=== PATIENT | female | born 1980 | race African-American/Black ===

== ENCOUNTER 2019-05-05 16:07 | Emergency (ER) | payer OTHER ==
[~2019-05-05] VITALS: Ht 165.1 cm; Wt 78.9 kg
[2019-05-05 16:10] VITALS: BP 124/79; Ht 165.1 cm; Wt 78.9 kg
[2019-05-05 17:48] LABS: BASOPHIL % 0.5 % (0-2); PLATELET COUNT 212 x10^3mcL (130-400); RED CELL DISTRIBUTION WIDTH 13.8 % (11.5-14.5)
[2019-05-05 17:54] LABS: CALCIUM 8.2 mg/dL (8.5-10.1); CARBON DIOXIDE 28.3 mmol/L (21-32); CHLORIDE SERUM 108 mmol/L (98-107); CREATININE SERUM 0.9 mg/dL (0.6-1.0); GFR1 > 60 mL/min; GLUCOSE SERUM 85 mg/dL (74-106); POTASSIUM SERUM 4.1 mmol/L (3.5-5.1); SODIUM SERUM 144 mmol/L (136-145)
[2019-05-05 17:59] LABS: ALKALINE PHOSPHATASE 91 U/L (46-116); ALT/SGPT 13 U/L (14-59); AST/SGOT 8 U/L (15-37); TOTAL PROTEIN, SERUM 6.9 g/dL (6.4-8.2)
[2019-05-05 18:04] LABS: ALBUMIN 3.3 g/dL (3.4-5.0)
== END 2019-05-05 18:55 | disposition left against medical advice (07) ==
LOC: ED 16:07
PROVIDERS: Emergency Medicine
DX: Z53.21 Procedure and treatment not carried out due to patient leaving prior to being seen by health care provider (principal)

== ENCOUNTER 2019-05-06 08:54 | Emergency (ER) | payer OTHER | END 2019-05-06 09:31 | disposition left against medical advice (07) | LOC: ED 08:54 | DX: Z53.21 Procedure and treatment not carried out due to patient leaving prior to being seen by health care provider (principal) ==

== ENCOUNTER 2019-05-18 17:43 | Emergency (ER) | payer OTHER ==
[~2019-05-18] VITALS: Ht 165.1 cm; Wt 77.6 kg
[2019-05-18 18:09] VITALS: Ht 165.1 cm; Wt 77.6 kg
[2019-05-18 18:55] LABS: BASOPHIL % 0.3 % (0-2); PLATELET COUNT 276 x10^3mcL (130-400); RED CELL DISTRIBUTION WIDTH 13.5 % (11.5-14.5)
[2019-05-18 19:05] LABS: CALCIUM 8.2 mg/dL (8.5-10.1); CARBON DIOXIDE 25.5 mmol/L (21-32); CHLORIDE SERUM 108 mmol/L (98-107); CREATININE SERUM 0.8 mg/dL (0.6-1.0); GFR1 > 60 mL/min; GLUCOSE SERUM 97 mg/dL (74-106); POTASSIUM SERUM 3.4 mmol/L (3.5-5.1); SODIUM SERUM 143 mmol/L (136-145)
[2019-05-18 19:09] LABS: ALKALINE PHOSPHATASE 80 U/L (46-116); ALT/SGPT 11 U/L (14-59); AST/SGOT 8 U/L (15-37); BILIRUBIN DIRECT 0.08 mg/dL (0.0-0.2); BILIRUBIN TOTAL 0.3 mg/dL (0.20-1.00); LIPASE 150 IU/L (73-393); TOTAL PROTEIN, SERUM 6.5 g/dL (6.4-8.2)
[2019-05-18 19:10] LABS: ALBUMIN 3.2 g/dL (3.4-5.0)
[2019-05-18 20:18] VITALS: BP 105/62
== END 2019-05-18 20:18 | disposition left against medical advice (07) ==
LOC: ED 17:43
PROVIDERS: Student in an Organized Health Care Education/Training Program
DX: K52.9 Noninfective gastroenteritis and colitis, unspecified (principal); K56.699 Other intestinal obstruction unspecified as to partial versus complete obstruction; Z88.8 Allergy status to other drugs, medicaments and biological substances; Z90.49 Acquired absence of other specified parts of digestive tract; Z90.710 Acquired absence of both cervix and uterus; Z98.890 Other specified postprocedural states
CPT/HCPCS: J0696; J2270; J2405; J7030; J7060

== ENCOUNTER 2019-05-23 21:25 | Emergency (ER) | payer OTHER ==
[~2019-05-23] VITALS: Ht 165.1 cm; Wt 80.7 kg
[2019-05-23 21:30] VITALS: Ht 165.1 cm; Wt 80.7 kg
[2019-05-23 22:18] LABS: BASOPHIL % 0.5 % (0-2); PLATELET COUNT 248 x10^3mcL (130-400); RED CELL DISTRIBUTION WIDTH 14.2 % (11.5-14.5)
[2019-05-23 22:28] LABS: CALCIUM 7.6 mg/dL (8.5-10.1); CARBON DIOXIDE 25.8 mmol/L (21-32); CHLORIDE SERUM 110 mmol/L (98-107); CREATININE SERUM 0.7 mg/dL (0.6-1.0); GFR1 > 60 mL/min; GLUCOSE SERUM 105 mg/dL (74-106); POTASSIUM SERUM 3.3 mmol/L (3.5-5.1); SODIUM SERUM 144 mmol/L (136-145)
[2019-05-23 22:33] LABS: ALKALINE PHOSPHATASE 69 U/L (46-116); ALT/SGPT 10 U/L (14-59); AMYLASE 49 U/L (25-115); AST/SGOT 11 U/L (15-37); BILIRUBIN TOTAL 0.35 mg/dL (0.20-1.00); LIPASE 97 IU/L (73-393)
[2019-05-23 22:35] LABS: ALBUMIN 2.8 g/dL (3.4-5.0); TOTAL PROTEIN, SERUM 5.8 g/dL (6.4-8.2)
[2019-05-24 04:19] VITALS: BP 126/86
== END 2019-05-24 06:13 | disposition home or self-care (01) ==
LOC: ED 21:25
PROVIDERS: Specialist
DX: N83.202 Unspecified ovarian cyst, left side (principal); R11.10 Vomiting, unspecified; Z90.49 Acquired absence of other specified parts of digestive tract; Z90.11 Acquired absence of right breast and nipple; Z98.890 Other specified postprocedural states; Z88.8 Allergy status to other drugs, medicaments and biological substances
CPT/HCPCS: J1885; J2270; J2405; J3010; J7030

== ENCOUNTER 2019-05-24 11:18 | Emergency (ER) | payer OTHER ==
[~2019-05-24] VITALS: Ht 165.1 cm; Wt 79.4 kg
[2019-05-24 11:25] VITALS: Ht 165.1 cm; Wt 79.4 kg
[2019-05-24 12:29] VITALS: BP 130/77
== END 2019-05-24 12:59 | disposition home or self-care (01) ==
LOC: ED 11:18
DX: N83.202 Unspecified ovarian cyst, left side (principal)
CPT/HCPCS: J2270; Q0162

== ENCOUNTER 2019-06-16 21:00 | Emergency (ER) | payer OTHER ==
[~2019-06-16] VITALS: Ht 165.1 cm; Wt 72.6 kg
[2019-06-16 21:08] VITALS: Ht 165.1 cm; Wt 72.6 kg
[2019-06-16 21:56] LABS: BASOPHIL % 0.3 % (0-2); PLATELET COUNT 249 x10^3mcL (130-400); RED CELL DISTRIBUTION WIDTH 14.4 % (11.5-14.5)
[2019-06-16 22:07] LABS: CALCIUM 8.9 mg/dL (8.5-10.1); CARBON DIOXIDE 24.4 mmol/L (21-32); CHLORIDE SERUM 106 mmol/L (98-107); CREATININE SERUM 0.7 mg/dL (0.6-1.0); GFR1 > 60 mL/min; GLUCOSE SERUM 99 mg/dL (74-106); POTASSIUM SERUM 3.5 mmol/L (3.5-5.1); SODIUM SERUM 141 mmol/L (136-145)
[2019-06-16 22:12] LABS: ALBUMIN 3.6 g/dL (3.4-5.0); ALKALINE PHOSPHATASE 90 U/L (46-116); ALT/SGPT 13 U/L (14-59); AST/SGOT 13 U/L (15-37); BILIRUBIN TOTAL 0.3 mg/dL (0.20-1.00); TOTAL PROTEIN, SERUM 7.3 g/dL (6.4-8.2)
[2019-06-17 00:48] VITALS: BP 112/79
== END 2019-06-17 00:48 | disposition home or self-care (01) ==
LOC: ED 21:00
PROVIDERS: Emergency Medicine
DX: N83.202 Unspecified ovarian cyst, left side (principal); Z88.8 Allergy status to other drugs, medicaments and biological substances; Z90.710 Acquired absence of both cervix and uterus; Z90.721 Acquired absence of ovaries, unilateral
CPT/HCPCS: 36415; J3010; Q0162

== ENCOUNTER 2019-07-03 17:08 | Emergency (ER) | payer OTHER ==
[~2019-07-03] VITALS: Ht 165.1 cm; Wt 74.4 kg
[2019-07-03 17:17] VITALS: Ht 165.1 cm; Wt 74.4 kg
[2019-07-03 18:13] LABS: BASOPHIL % 0.9 % (0-2); PLATELET COUNT 251 x10^3mcL (130-400); RED CELL DISTRIBUTION WIDTH 13.1 % (11.5-14.5)
[2019-07-03 18:21] LABS: CALCIUM 8.5 mg/dL (8.5-10.1); CARBON DIOXIDE 27.5 mmol/L (21-32); CHLORIDE SERUM 103 mmol/L (98-107); CREATININE SERUM 0.7 mg/dL (0.6-1.0); GFR1 > 60 mL/min; GLUCOSE SERUM 92 mg/dL (74-106); POTASSIUM SERUM 3.8 mmol/L (3.5-5.1); SODIUM SERUM 138 mmol/L (136-145)
[2019-07-03 18:26] LABS: ALBUMIN 3.5 g/dL (3.4-5.0); ALKALINE PHOSPHATASE 79 U/L (46-116); ALT/SGPT 37 U/L (14-59); AST/SGOT 31 U/L (15-37); BILIRUBIN TOTAL 0.4 mg/dL (0.20-1.00); LIPASE 63 IU/L (73-393)
[2019-07-04 02:30] VITALS: BP 137/84
== END 2019-07-04 02:42 | disposition home or self-care (01) ==
LOC: ED 17:08
PROVIDERS: Emergency Medicine
DX: L30.4 Erythema intertrigo (principal); J10.1 Influenza due to other identified influenza virus with other respiratory manifestations; Z88.8 Allergy status to other drugs, medicaments and biological substances; Z91.041 Radiographic dye allergy status; Z90.710 Acquired absence of both cervix and uterus
CPT/HCPCS: J2270; J2405; J2920; J3010; Q9967

== ENCOUNTER 2019-07-04 15:32 | Observation (INO) | payer OTHER ==
[~2019-07-04] VITALS: Ht 165.1 cm; Wt 77.1 kg
[2019-07-04 15:40] VITALS: Ht 165.1 cm; Wt 77.1 kg
--- NOTE | 2019-07-04 16:12 | NUR ---
PT PRESENTS TO ED WITH C/O ABDOMINAL PAIN. PT REPORTS BEING SEEN HERE YESTERDAY FOR SAME PAIN. PT STS "STUDIES WERE INCONCLUSIVE" AND SHE WAS SENT HOME. PT STS PAIN SUBSIDED BRIEFLY BUT RETURNED TODAY. PT STS PAIN IS IN LOWER MID QUADRANT OF ABDOMEN AND RADIATES TO BACK. PT REPORTS N/V WITH PAIN. PT ALSO REPORTS BEING UNABLE TO URINATE SINCE YESTERDAY. PT STS SHE FEELS THE URGE TO GO BUT NOTHING COMES OUT. PT ALSO REPORTS HAVING FEVER TODAY. PT AAOX4, RESP E/U, LAYING ON LEFT SIDE HOLDING STOMACH. PT CALL LIGHT WITHIN REACH, WILL CONTINUE TO MONITOR.
[2019-07-04 17:14] LABS: CALCIUM 8.6 mg/dL (8.5-10.1); CARBON DIOXIDE 27.9 mmol/L (21-32); CHLORIDE SERUM 106 mmol/L (98-107); CREATININE SERUM 0.7 mg/dL (0.6-1.0); GFR1 > 60 mL/min; GLUCOSE SERUM 83 mg/dL (74-106); POTASSIUM SERUM 3.8 mmol/L (3.5-5.1); SODIUM SERUM 141 mmol/L (136-145)
[2019-07-04 17:18] LABS: ALKALINE PHOSPHATASE 80 U/L (46-116); ALT/SGPT 28 U/L (14-59); AST/SGOT 14 U/L (15-37); LIPASE 80 IU/L (73-393); TOTAL PROTEIN, SERUM 6.8 g/dL (6.4-8.2)
[2019-07-04 17:19] LABS: ALBUMIN 3.3 g/dL (3.4-5.0)
[2019-07-04 17:20] LABS: BASOPHIL % 1.4 % (0-2); PLATELET COUNT 274 x10^3mcL (130-400); RED CELL DISTRIBUTION WIDTH 13.3 % (11.5-14.5)
--- NOTE | 2019-07-04 17:26 | NUR ---
PT TOLD WE NEED A URINE SAMPLE. PT STS SHE CAN'T GO CURRENTLY. AWARE.
--- NOTE | 2019-07-04 17:42 | NUR ---
PT REPORTS NO DIFFERENCE IN PAIN, STILL 06/11. NOTIFIED.
--- NOTE | 2019-07-04 19:12 | NUR ---
REPORT GIVEN TO ANISH MICHAUD TO ASSUME CARE OF PT.
--- NOTE | 2019-07-04 19:30 | NUR ---
DANIEL ROMANO FOR PELVIC EXAM AND SPECIMEN COLLECTION. SPECIMENS SENT TO LAB.
--- NOTE | 2019-07-04 20:37 | NUR ---
PT REPORT CALLED TO ELSA OCONNELL TO ASSUME PT CARE.
--- NOTE | 2019-07-04 20:40 | NUR ---
PT TRANSFERRED TO 219A BY WHEELCHAIR BY OLIVERIO MUNOSN. PT ACCEPTED BY ELSA OCONNELL TO ASSUME PT CARE. PT AOX4, RESP EVEN AND UNLABORED, NO ACUTE DISTRESS NOTED. PT AMBULATED FROM WHEELCHAIR TO BED WITHOUT INCIDENT.
[2019-07-04 20:54] VITALS: BP 123/92
--- NOTE | 2019-07-04 20:56 | NUR ---
RECEIVED PT FROM ED VIA [facility]ALT. ORIENTED PT TO ROOM AND SURROUNDINGS. IV NOTED TO RIGHT BICEP PATENT AND INTACT. INSTRUCTED PT ON THE USE OF CALL LIGHT FOR ASSISTANCE. ENDORSED PT TO PRIMARY NURSE ELSA
--- NOTE | 2019-07-04 21:00 | NUR ---
PT RECEIVED FROM RESOURCE NURSE. PT A/O X4, ABLE TO MAKE NEEDS KNOWN. MED-SURG, DENIES ANY CP/PRESSURE. PULSES PALPABLE, NO EDEMA PRESENT. BREATHING IS EVEN AND UNLABORED ON RA, DENIES SOB, NO RESP DISTRESS NOTED. ABD SOFT AND ROUND, DENIES ANY N/V. VOIDS FREELY, BRP. AMBULATORY WITH STEADY GAIT. SKIN IS WARM AND DRY, INTACT. PT C/O SEVERE ABD PAIN, WILL MEDICATE WITH PRN PAIN MED PER EMAR. SL TO RT BICEP, PATENT AND INTACT, SITE WNL. ORIENTED PT ROOM AND CALL LIGHT. NO ACUTE DISTRESS NOTED. BED IN LOWEST SETTING, SIDE RAILS UP X2, CALL LIGHT WITHIN REACH. WILL CONT TO MONITOR.
--- NOTE | 2019-07-04 21:07 | NUR ---
PT C/O 10/10 ABD PAIN, PRN MORPHINE IVP GIVEN ORDERED. NO ACUTE DISTRESS OBSERVED.
--- NOTE | 2019-07-04 23:05 | NUR ---
SPOKE WITH DR ATKINS REGARDING PT'S CT ABD+PELVIS WITH IV+PO CONTRAST. DR ATKINS AWARE OF PT'S PREVIOUS CT RESULTS. PER DR ATKINS, "OKAY TO CONT WITH CT, DR FORREST WOULD LIKE TO TO R/O INTRA-ABD PATHOLOGY AND TRENDING WBC." WILL NOTIFY AQUATIC LABORER.
--- NOTE | 2019-07-04 23:45 | NUR ---
PER PT, "WHEN I TAKE NORCO, I BREAK OUT IN HIVES, THATS WHY MY PRIMARY SWITCHED MY PAIN MED TO OXYCODONE." DR ATKINS MADE AWARE, ORDERS RECEIVED.
[2019-07-05 06:29] LABS: CALCIUM 7.8 mg/dL (8.5-10.1); CARBON DIOXIDE 26.9 mmol/L (21-32); CHLORIDE SERUM 108 mmol/L (98-107); CREATININE SERUM 0.7 mg/dL (0.6-1.0); GFR1 > 60 mL/min; GLUCOSE SERUM 96 mg/dL (74-106); MAGNESIUM 1.9 mg/dL (1.8-2.4); SODIUM SERUM 141 mmol/L (136-145)
[2019-07-05 07:04] LABS: BASOPHIL % 0.9 % (0-2); PLATELET COUNT 222 x10^3mcL (130-400); RED CELL DISTRIBUTION WIDTH 13.2 % (11.5-14.5)
--- NOTE | 2019-07-05 07:47 | NUR ---
PT SLEPT AT INTERVALS THROUGHOUT THE EVENING. BREATHING IS EVEN AND UNLABORED, NO RESP DISTRESS NOTED. PT HAD INTERMITTEND EPSODES OF SEVERE ABD PAIN, PRN MORPHINE IVP AND OXYCODONE GIVEN PER EMAR. PT NPO AT THIS TIME FOR CT ABD+PELVES. NO ACUTE CHANGES ENCOUNTERED DURING SHIFT. ALL NEEDS MET AND ANTICIPATED. IV INTACT. CALL LIGHT WITHIN REACH. CONT OF CARE ENDORSED TO AM NURSE.
--- NOTE | 2019-07-05 07:50 | NUR ---
RECEIVED HAND OFF REPORT FROM NIGHT NURSE. PATIENT NPO AT THIS TIME DUE TO PENDING CT ABD WITH CONTRAST. HIS WILL BE THE 3RD CT ABD IN 2 DAYS. PATIENT HAD IV CONTRAST ON THE PREVIOUS SCAN AND NOW WILL BE GETTING PO AND IV CONTRAST. PATIENT HAS A STATED ALLERGY TO IODINE WITH AN EPISODE OF DIFFICULTY BREATHING WITH LAST IV CONTRAST. DR ATKINS AWARE STATING THAT DR FORREST WANTS THE CONTRAST STUDY. RADIOLOGY TECHS AT BEDSIDE ASKING QUESTIONS ABOUT PROCEDURE OF PREVIOUS STUDY
--- NOTE | 2019-07-05 08:06 | NUR ---
REJI FROM CT CALLED AND STATED SHE SPOKE WITH RADIOLOGIST WHO RECOMMENDED A 13 HR PREP WITH PREDNISONE, UNLESS SCAN IS EMERGENT. WILL INFORM DR ATKINS AND INFORM HIM WITH RECOMMENDATIONS
--- NOTE | 2019-07-05 08:21 | NUR ---
DR WOODSON AT STATION AT THIS TIME. WILL UPDATE ON STATUS OF CT SCAN
[2019-07-05 08:52] VITALS: BP 106/73
--- NOTE | 2019-07-05 09:05 | NUR ---
DR WOODSON ROUNDED ON PATIENT. DOES NOT SEE NEED TO HAVE 3RD CT SCAN AFTER 2 PREVIOUS NEGATIVE STUDIES. ORDER RECEIVED TO CANCEL CT SCAN, CALLED MICHAEL IN CT AND INFOMRED. PATIENT ENCOURAGED BY DR WOODSON TO FOLLOW UP WITH OUTPATIENT OBGYN, NEW ORDERS FOR DIFLUCAN FOR POSSIBLE YEAST INFECTION
--- NOTE | 2019-07-05 11:52 | NUR ---
PATIENT COMPLAINING OF SEVERE VAGINAL PAIN AND BURNING WHEN URINATING. MEDICATED PER MAR. NEW CLINICAL RESULTS FROM [facility] SHOW NO INDICATION OF YEAST INFECTION, BUT BACTERIA LEADING TO BACTERIAL VAGINOSIS. WILL PAGE DR WOODSON AND INFORM/
--- NOTE | 2019-07-05 12:36 | NUR ---
SPOKE WITH DR WOODSON AND INFORMED OF NEW CLINICAL INFORMATION OF [facility], RECEIVED ORDERS TO DC DIFLUCAN AND START ON ROCEPHIN 1GM IV DAILY.
--- NOTE | 2019-07-05 14:30 | NUR ---
PATIENT PAIN IS REMAINING AT 9/10, CRAMPING IN VAGINA, MEDICATED PER MAR. AWAITING DR FORREST CONSULT. ASSISTED PATIENT TO PSOTIION OF COMFORT, NO FURTHER VAGINAL BLEEDING AT THIS TIME. WILL CONTINUE TO MONITOR
[2019-07-05 16:40] VITALS: BP 98/66
--- NOTE | 2019-07-05 18:37 | NUR ---
PATIENT COMPLAINING OF 10/10 PAIN TO LOWER ABDOMEN. MEDICATED PER OCT. PAGED [employer]OLOG[employer] PROFESSOR [facility] DOCTOR TO INFORM. SCANT SPOTTING SEEN ON PAD FROM PATIENT VAGINA. REPORTED SEEING BLOOD WHEN WIPING
--- NOTE | 2019-07-05 18:53 | NUR ---
SPOKE WITH DR ROSS, INFOMRED OF PATIENT CONDITION AND CONTINUED PAIN. RECEIVED ORDER TO INCREASE MORPHINE TO 3MG IV Q3HR WILL ENDORSE TO NIGHT NURSE
--- NOTE | 2019-07-05 19:40 | NUR ---
RECEIVED PT FROM AM NURSE BENNY. PT LAYING DOWN IN BED. C/O ABD PAIN WITH NO ALLEVIATING FACTORS. WILL MEDICATE ACCORDINGLY. MED-STEVE. DENIES CP/PRESSURE AT THIS TIME. PALPABLE PULSES TO ALL EXTREMETIES. NO EDEMA NOTED. LUNG SOUNDS CTA. BREATHING EVEN AND UNLABORED ON RA. NO ACUTE DISTRESS NOTED. ABD SOFT AND NONDISTENDED. ACTIVE BS X4 QUAD. PT C/O VAGINAL SPOTTING. VOIDS FREELY BRP. IV TO LFA FLUSHING WELL. SITE WNL. BED AT LOWEST SETTING. SIDE RAILS X2 UP. CALL LIGHT WITHING REACH. WILL CONT TO MONITOR.
[2019-07-05 20:25] VITALS: BP 103/70
--- NOTE | 2019-07-05 20:25 | NUR ---
PT C/O 06/11 ABD PAIN WITH NO ALLEVIATING FACTORS. MEDICATED WITH PRN MORPHINE PER OCT. NO ACUTE DISTRESS NOTED. WILL CONT TO MONITOR.
--- NOTE | 2019-07-05 22:00 | NUR ---
PT C/O ANXIETY, CALLED DR ARANA. RECEIVED ORDER FOR ATIVAN. ATIVAN GIVEN PER OCT. NO ACUTE DISTRESS NOTED. WILL CONT TO MONITOR.
--- NOTE | 2019-07-05 23:48 | NUR ---
PT C/O 06/11 ABD PAIN. MEDICATED WITH PRN MORPHINE PER OCT. VS 108/76, 80, RESP 18. NO ACUTE DISTRESS NOTED. WILL CONT TO MONITOR.
--- NOTE | 2019-07-06 03:17 | NUR ---
PT C/O 06/11 ABD PAIN. MEDICATED WITH PRN MORPHINE PER OCT. NO ACUTE DISTRESS NOTED. WILL CONT TO MONITOR.
[2019-07-06 05:32] VITALS: BP 93/64
--- NOTE | 2019-07-06 06:43 | NUR ---
PT SLEPT AT INTERVALS THROUGHOUT THE NIGHT. BREATHING EVEN AND UNLABORED ON RA. PT CONTINUES TO HAVE ABD PAIN. AND SCANT VAGINAL BLEEDING. ALL NEEDS ASSESSED AND ATTENDED TO. NO ACUTE DISTRESS NOTED. BED AT LOWEST SETTING. SIDE RAILS X2 UP. CALL LIGHT WITHING REACH. WILL ENDORSE CARE TO AM NURSE.
--- NOTE | 2019-07-06 07:10 | NUR ---
RECEIVED REPORT FROM AIR AND WATER TESTER NURSE . PT SITTING UP IN BED ON HER SIDE STATING SHE'S ALWAYS IN PAIN. PT JUST RECEIVED MORPHINE. I EPLAINED TO HER I WILL GIVE HER NEXT DOSE WHEN IT'S DUE IN 3 HRS. PT VERBALIZED UNDERSTANDING. OFFERED REPOSITIONING PT REFUSED. PT REQUESTED JELLO AND SNACKS. IV LFA PATENT AND INTACT. ALL QUESTIONS AND CONCERNS ADDRESSED AT THIS TIME. BED IN LOW POSITION CALL LIGHT WITHIN REACH. WILL CONTINUE TO MONITOR.
--- NOTE | 2019-07-06 07:40 | NUR ---
PATIENT CURLED IN BED CRYING DEMANDING A DR. I ASKED HOW I COULD HELP HER. SHE STATED" THERES NOTHING YOU CAN DO I NEED A DR." CALLED DR. VERDIN PER DR VERDIN hE STATED I AM REFERRING HER TO OUT PATIENT OBGYN DR. THERE'S NOTHING MORE I CAN DO" I SPOKE TO PT ASKING AGAIN IF THERES ANYTHING I CAN DO. PT REFUSED AND STATED "I WILL GO AMA THEN GO GET ME THE PAPER." EDUCATED THE ON AMA AND SHE STILL REFUSED AND YELLED TO NOT TALK TO HER. WILL SPEAK WITH CHARGE NURSE AND PROCEED DIRECTED.
--- NOTE | 2019-07-06 07:41 | NUR ---
PT C/O 06/11 ABD PAIN. MEDICATED WITH PRN MORPHINE PER OCT. NO ACUTE DISTRESS NOTED. ENDORSED CARE TO ENID OCONNELL.
--- NOTE | 2019-07-06 08:43 | NUR ---
HOUSE SUPERVISIOR SPOKE WITH PATIENT REGUARDING HER CONCERNS. LILLIAN HARPER STATED TO CALL DR VERDIN ABOUT GETTING AN INPATIENT CONSULT FOR OBGYN TODAY. SPOKE WITH DR VERDIN HE STATED OBGYN WILL BE IN TODAY FOR CONSULT. PT VERBALIZED UNDERSTANDING AND WILL WAIT FOR CONSULT. PT C/O MORPHINE 3G Q3H IS NOT ENOUGH PAIN MED. RECOMMEDED ALTERNATIVE METHODS PT REFUSED ALL. PATIENT STATED I NEED SOMETHING THAT WORKS. PT EDUCATED ON PAIN MEDICATION. WILL FOLLOW UP WITH DR VERDIN AGAIN. CALL LIGHT WITHIN REACH. PT LYING ALL QUESTIONS AND CONCERNS ADDRESSED. WILL CONTINUE TO MONITOR.
--- NOTE | 2019-07-06 09:59 | NUR ---
PATIENT LYING IN BED ASLEEP . ADMINISTERED PAIN MEDICATION PER OCT. NO S/S OF DISTRESS NOTED. PT CALM AND COOPERATIVE. NO ADVERSE REACTIONS NOTED. ALL QUESTIONS AND CONCERNS ADDRESSED AT THIS TIME. WILL CONTINUE TO MONITOR.
--- NOTE | 2019-07-06 11:04 | NUR ---
PATIENT C/O 10/ PAIN IN UTERUS/ ABD. ADMINISTERED PRN PAIN MED. CALL LIGHT WITHIN REACH BED IN LOW POSITION. ALL NEEDS ATTENDED TO AT THIS TIME.
--- NOTE | 2019-07-06 12:35 | NUR ---
PATIENT SITTING UP IN BED EATIN LUNCH TOLERATING WELL. FAMILY AT BEDSIDE. NO S/S OF DISTRESS NOTED. ALL NEEDS ATTENDED TO AT THIS TIME. CALL LIGHT WITHIN REACH BED IN LOW POSITION. WILL CONTINUE TO MONITOR.
--- NOTE | 2019-07-06 14:42 | NUR ---
ADMINISTERED ATIVAN BEFORE PT GOES TO CT SCAN. NO S/S OF DISTRESS NOTED. ALL NEEDS ATTENDED TO AT THIS TIME. ALL QUESTIONS AND CONCERNS ADDRESSED AT THIS TIME. WILL CONTINUE TO MONITOR. ALL SAFETY PRECAUTIONS IN PLACE.
--- NOTE | 2019-07-06 16:06 | NUR ---
ADMINISTERED MORPHINE IVP PER 06/11 PAIN. PT TOLERATED WELL . ALL NEEDS ATTENDED TO AT THIS TIME . BED IN LOW POSITION CALL LIGHT WITHIN REACH WILL CONTINUE TO MONITOR.
--- NOTE | 2019-07-06 17:32 | NUR ---
DR MOYER AT BEDSIDE ASSESSING PATIENT.
[2019-07-06] MEDS ORDERED: FLA500 PO (18:07)
[2019-07-06 18:22] VITALS: BP 101/65
--- NOTE | 2019-07-06 19:11 | NUR ---
DISCHARGE TEACHING GIVEN AND PAPERS SIGNED. PT VERBALIZED UNDERSTANDING. IV D/C'D DRESSING APPLIED. NO EDEMA OR REDNESS NOTED. ADMINISTERED 5MG IM PER DR BEARD PT WAITING FOR RIDE TO PICK HER UP. PT STABLE FOR DISCHARGE. ALL QUESTIONS AND CONCERNS ADDRESSED AT THIS TIME. PT TOLERATED IM WELL. NO ADVERSE AFFECTS NOTED.
== END 2019-07-06 19:25 | disposition home or self-care (01) | DRG 531 ==
LOC: ED 15:32 → MU 20:18
PROVIDERS: Emergency Medicine; ADMIT Internal Medicine Nephrology
DX: N76.0 Acute vaginitis (principal); F17.210 Nicotine dependence, cigarettes, uncomplicated; N83.209 Unspecified ovarian cyst, unspecified side; R10.2 Pelvic and perineal pain; Z68.26 Body mass index [BMI] 26.0-26.9, adult; Z85.43 Personal history of malignant neoplasm of ovary; Z90.710 Acquired absence of both cervix and uterus; Z90.721 Acquired absence of ovaries, unilateral
CPT/HCPCS: 87491; 87591; G0378; J0696; J1450; J1644; J2060; J2270; J2405; J3010; J7030; J7040; J7060

== ENCOUNTER 2019-07-21 09:51 | Emergency (ER) | payer OTHER ==
[~2019-07-21] VITALS: Ht 165.1 cm; Wt 77.1 kg
[~2019-07-21 09:51] MED LIST: FLA500 PO
[2019-07-21 10:00] VITALS: Ht 165.1 cm; Wt 77.1 kg
[2019-07-21 11:44] VITALS: BP 90/64
== END 2019-07-21 12:30 | disposition home or self-care (01) ==
LOC: ED 09:51
DX: R10.30 Lower abdominal pain, unspecified (principal); R10.814 Left lower quadrant abdominal tenderness; Z87.42 Personal history of other diseases of the female genital tract; Z90.710 Acquired absence of both cervix and uterus; Z88.8 Allergy status to other drugs, medicaments and biological substances